=== PATIENT | male | born 1970 | race Caucasian/White ===

== ENCOUNTER 2021-04-19 20:01 | Emergency (ER) | payer OTHER ==
--- NOTE | 2021-04-19 21:27 | XR ---
EXAMINATION TYPE: XR chest 2V DATE OF EXAM: 04/19/2021 COMPARISON: NONE HISTORY: Fever TECHNIQUE: FINDINGS: There is patchy bilateral pulmonary peripheral infiltrates. Heart and mediastinum are donna l. There are no hilar masses. There is no pleural effusion. IMPRESSION: Patchy bilateral pneumonia. Normal heart.
[2021-04-19] MEDS ORDERED: IBUPROFEN 400 MG TAB PO STA (21:30)
[2021-04-19] MEDS ORDERED: SODIUM CHLORIDE 0.9% 50 ML IVPB ONE (21:45)
[2021-04-19] MEDS ORDERED: CASIRIVIMAB (REGN10933) (EUA) 600 MG, IMDEVIMAB (REGN10987) (EUA) 600 MG in SODIUM CHLO... IVPB ONE (22:00)
--- NOTE | 2021-04-19 22:18 | ED ---
URI HPI - General Chief Complaint: Upper Respiratory Infection Stated Complaint: COVID+, Fever Time Seen by Provider: 04/19/21 21:18 Source: patient Mode of arrival: wheelchair Limitations: no limitations - History of Present Illness Initial Comments: 50-year-old male presents to emergency department with a chief complaint of Covid. Patient reports he was diagnosed positive 2 days ago but he has been expansion symptoms for about 6 days. Patient reports he spoke to his primary care physician who started him on 6 mg of dexamethasone and azithromycin. Patient reports he continues to cough and aches. Generalized fatigue. States the cough is nonproductive with occasional white sputum production. He denies any otalgia, chest pain or shortness of breath. - Related Data Allergies Allergy/AdvReac Type Severity Reaction Status Date / Time No Known Allergies Allergy Verified 04/19/21 20:29 Review of Systems ROS Statement: Those systems with pertinent positive or pertinent negative responses have been documented in the HPI. ROS Other: All systems not noted in ROS Statement are negative. Past Medical History Past Medical History: GERD/Reflux, Hypertension History of Any Multi-Drug Resistant Organisms: None Reported Past Surgical History: No Surgical Hx Reported Past Psychological History: No Psychological Hx Reported Smoking Status: Never smoker Past Alcohol Use History: Occasional Past Drug Use History: None Reported General Exam Limitations: no limitations General appearance: alert, in no apparent distress Head exam: Present: atraumatic, normocephalic, normal inspection Eye exam: Present: normal appearance Pupils: Present: normal accommodation ENT exam: Present: normal exam, normal oropharynx, mucous membranes moist Neck exam: Present: normal inspection, full ROM. Absent: tenderness Respiratory exam: Present: normal lung sounds bilaterally. Absent: respiratory distress, wheezes, rales, rhonchi, stridor, chest wall tenderness, accessory muscle use Cardiovascular Exam: Present: regular rate, normal rhythm, normal heart sounds. Absent: systolic murmur Extremities exam: Present: normal inspection, full ROM. Absent: tenderness Back exam: Present: normal inspection, full ROM. Absent: tenderness Neurological exam: Present: alert, oriented X3 Psychiatric exam: Present: normal affect, normal mood Skin exam: Present: warm, dry, intact, normal color Course Vital Signs 04/19/21 04/19/21 20:30 21:05 Temperature 100.2 F H Pulse Rate 108 H Respiratory 20 20 Rate Blood Pressure 124/82 O2 Sat by Pulse 94 L Oximetry Medical Decision Making - Medical Decision Making 50-year-old male presents to the emergency room with a chief complaint coated. On physical examination, patient is well-appearing. Lungs are clear to auscultation. Chest x-ray reveals coronavirus pneumonia. Patient was given antipyretics here. His vital signs did improve. No chest pain or shortness of breath. Patient was given a monoclonal antibody. He was observed afterward with improvement of symptoms. Cold protocol discussed. Return parameters were discussed patient is understanding and agreeable. Disposition Clinical Impression: COVID-19 Disposition: HOME SELF-CARE Condition: Stable Instructions (If sedation given, give patient instructions): Coronavirus Disease 2019 (COVID-19) Additional Instructions: Please return to the Emergency Department if symptoms worsen or any other concerns. Is patient prescribed a controlled substance at d/c from ED?: No Referrals: Cristobal Calhoun DO [Primary Care Provider] - 1-2 days Time of Disposition: 22:36
[2021-04-19 23:24] VITALS: BP 125/79; PULSE 98; RESP 18; TEMP 99
== END 2021-04-19 23:24 | disposition home or self-care (01) ==
LOC: EC 20:01
DX: U07.1 COVID-19 (principal); I10 Essential (primary) hypertension; K21.9 Gastro-esophageal reflux disease without esophagitis
CPT/HCPCS: 71046; 96365; 99283

== ENCOUNTER 2021-07-20 09:59 | Day surgery (SDC) | payer OTHER ==
[~2021-07-20 09:59] MED LIST: LACTATED RINGERS 1,000 ML IV SCH; LIDOCAINE 1% (10MG/ML) FOR IV START INTRADERMA PRN
[2021-07-20 10:24] VITALS: TEMP 98.4
[2021-07-20] MEDS ORDERED: PROPOFOL 10 MG/ML 20 ML VIAL IV ONE (11:46)
--- NOTE | 2021-07-20 11:47 | P.GSHP ---
History of Present Illness H&P Date: 07/20/21 Chief Complaint: Screening colonoscopy This a 51-year-old male who presents today for screening colonoscopy. Patient denies any significant GI complaints. Past Medical History Past Medical History: GERD/Reflux, Hypertension Additional Past Medical History / Comment(s): Hx Covid Apr 2021. History of Any Multi-Drug Resistant Organisms: None Reported Past Surgical History: No Surgical Hx Reported Past Anesthesia/Blood Transfusion Reactions: No Reported Reaction Past Psychological History: No Psychological Hx Reported Smoking Status: Former smoker, Light tobacco smoker Past Alcohol Use History: Occasional Additional Past Alcohol Use History / Comment(s): Used to have a cigarette when drinking, none now. Past Drug Use History: None Reported - Past Family History Mother Family Medical History: CVA/TIA, Diabetes Mellitus Medications and Allergies Home Medications Medication Instructions Recorded Confirmed Type Aspirin 81 mg PO DAILY 07/18/21 07/18/21 History Losartan Potassium 100 mg PO QAM 07/18/21 07/18/21 History Omeprazole [PriLOSEC] 40 mg PO DAILY 07/18/21 07/18/21 History Allergies Allergy/AdvReac Type Severity Reaction Status Date / Time No Known Allergies Allergy Verified 07/18/21 14:36 Surgical - Exam Vital Signs Temp Pulse Resp BP Pulse Ox 98.4 F 69 18 137/84 99 07/20/21 10:23 07/20/21 10:23 07/20/21 10:23 07/20/21 10:23 07/20/21 10:23 - General well developed, well nourished, no distress - Eyes PERRL - ENT normal pinna - Neck no masses - Respiratory normal expansion - Cardiovascular Rhythm: regular - Abdomen Abdomen: soft, non tender Assessment and Plan Assessment: We will perform screening colonoscopy.
--- NOTE | 2021-07-20 11:58 | P.OP ---
Date of Procedure: 07/20/21 Preoperative Diagnosis: Screening colonoscopy Postoperative Diagnosis: Diverticulosis Procedure(s) Performed: Colonoscopy Anesthesia: MAC Surgeon: Cedrick Fraga Pathology: none sent Condition: stable Disposition: PACU Description of Procedure: Patient's placed on the endoscopy table in the lateral position. He received IV sedation. Digital rectal exam was performed which revealed no abnormalities. Flexible colonoscope was then placed patient anus and passed rotator entire colon. The ileocecal valve was visualized. The cecum, ascending and transverse colon appeared normal. In the descending and sigmoid colon there is mild diverticular changes. Scope was then brought back the rectum this appeared normal. Scope withdrawn for patient.
[2021-07-20 12:19] VITALS: RESP 16
[2021-07-20 12:23] VITALS: BP 122/74; PULSE 72
== END 2021-07-20 12:38 | disposition home or self-care (01) ==
LOC: ORWHC2ENDO 09:59
PROVIDERS: ATTEND Surgery
DX: Z12.11 Encounter for screening for malignant neoplasm of colon (principal); K57.90 Diverticulosis of intestine, part unspecified, without perforation or abscess without bleeding; Z87.891 Personal history of nicotine dependence; E11.9 Type 2 diabetes mellitus without complications; Z86.73 Personal history of transient ischemic attack (TIA), and cerebral infarction without residual deficits
CPT/HCPCS: G0121; J2704